=== PATIENT | female | born 1990 | race Caucasian/White ===

== ENCOUNTER 2016-09-21 11:58 | Emergency (ER) | payer MEDICAID, OTHER ==
[2016-09-21] MEDS ORDERED: Vancomycin(*) 1,000 MG in NS 0.9% 250 ML* 250 ML IVPB ONE (14:56)
[2016-09-21 15:43] LABS: Hematocrit 41 % (35-47); Hemoglobin 13.9 g/dl (12.0-16.0); Mean Corpuscular HGB Conc 34 g/dl (31-36); Mean Corpuscular Hemoglobin 30 pg (27-31); Mean Corpuscular Volume 88 fL (80-97); Mean Platelet Volume 7 um3 (7.4-10.4); Red Blood Count 4.69 10^6/ul (4.0-5.4); Red Cell Distribution Width 13 % (10.5-15); White Blood Count 9.4 10^3/ul (3.5-10.8)
[2016-09-21] MEDS ORDERED: LORazepam INJ* 2 MG/ML 1 ML VIAL IV PUSH ONE ×2 (15:46→16:42)
--- NOTE | 2016-09-21 15:46 | ED ---
Throat Pain/Nasal Congestion - HPI Summary HPI Summary: Patient arrives to ED with CC of bilateral periorbital swelling and erythema x 2 days. She states there have been open lesions on the forehead which had recently gotten worse and more "infected." She was seen at the [facility] - [place], [place] and prescribed Bactrim. At that time she was not experiencing periorbital edema. Today, worsening edema brings her to ED. Visual acuity intact. Area exquisitely tender on palpation. Denies visual disturbances, pain with EOM, discharge from the area or CARTER. Denies nasal discharge or recent illness. She is currently on suboxone and is unable to take opioids. 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 Erythematous lesions over forehead and face cover multiple area without discharge. Denies other illness, pain or symptoms at this time. 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 - History of Current Complaint Hx Obtained From: Patient Onset/Duration: Gradual Onset Severity: Worse Since: - this am Associated Signs And Symptoms: Positive: Negative - Epiglottits Risk Factors Epiglottis Risk Factors: Negative <Yuridia Mauricio - Last Filed: 09/21/16 16:22> <Monique White - Last Filed: 09/21/16 18:19> - History of Current Complaint Chief Complaint: EDGeneral Time Seen by Provider: 09/21/16 13:44 - Allergies/Home Medications Allergies/Adverse Reactions: Allergies Allergy/AdvReac Type Severity Reaction Status Date / Time No Known Allergies Allergy Verified 09/21/16 13:42 PMH/Surg Hx/FS Hx/Imm Hx Previously Healthy: Yes - mixed connective tissue disorder, previous drug history on suboxone Endocrine/Hematology History: Denies: Hx Diabetes, Hx Thyroid Disease Cardiovascular History: Denies: Hx Hypertension Respiratory History: Reports: Hx Asthma Denies: Hx Chronic Obstructive Pulmonary Disease (COPD) GI History: Denies: Hx Ulcer Sensory History: Denies: Hx Contacts or Glasses Opthamlomology History: Denies: Hx Contacts or Glasses Infectious Disease History: No Infectious Disease History: Reports: Hx Hepatitis - C, Hx of Known/Suspected MRSA Denies: Hx Clostridium Difficile, Hx Human Immunodeficiency Virus (HIV), Hx Shingles, Hx Tuberculosis, Hx Known/Suspected VRE, Hx Known/Suspected VRSA, History Other Infectious Disease, Traveled Outside the [place] in Last 30 Days - Family History Known Family History: Positive: Unknown, Other - denies any FMH disorders of blood - Social History Occupation: Unemployed Lives: Alone Alcohol Use: None Alcohol Amount: denies Hx Substance Use: No Substance Use Type: Reports: Heroin Substance Use Comment - Amount & Last Used: November 2015 - in a half way house 127 days clean Hx Tobacco Use: No Smoking Status (MU): Light Every Day Tobacco Smoker Type: Cigarettes Do You Chew or Dip Tobacco: No Amount Used/How Often: 5 cigarettes daily Have You Chewed or Dipped Tobacco in the LAST YEAR: No Length of Time of Smoking/Using Tobacco: 13 yrs Have You Smoked in the Last Year: Yes Household Exposure: No <Yuridia Mauricio - Last Filed: 09/21/16 16:22> Review of Systems Constitutional: Negative Positive: Erythema, Other - painful to palpation periorbitally ENT: Negative Cardiovascular: Negative Respiratory: Negative Genitourinary: Negative Positive: no symptoms reported, see HPI Musculoskeletal: Negative Skin: Negative Neurological: Negative Positive: Anxious All Other Systems Reviewed And Are Negative: Yes <Yuridia Mauricio - Last Filed: 09/21/16 16:22> Physical Exam Triage Information Reviewed: Yes Vital Signs On Initial Exam: Initial Vitals Temp Pulse Resp BP Pulse Ox 99.2 F 88 15 140/83 100 09/21/16 12:03 09/21/16 12:03 09/21/16 12:03 09/21/16 12:03 09/21/16 12:03 Vital Signs Reviewed: Yes Appearance: Positive: Ill-Appearing, Pain Distress Skin: Positive: Warm, Skin Color Reflects Adequate Perfusion, Erythema @ - periorbitally Eyes: Positive: EOMI, DAILY, Conjunctiva Inflammed - slightly with no discharge, Other: - warm erythematous edematous periorbital bilateral tenderness ENT: Positive: Normal ENT inspection, Pharynx normal, TMs normal Neck: Positive: Supple, Nontender Respiratory/Lung Sounds: Positive: Clear to Auscultation Cardiovascular: Positive: Normal Musculoskeletal: Positive: Normal, Strength/ROM Intact Neurological: Positive: Normal, Sensory/Motor Intact, Alert, Oriented to Person Place, Time, CN Intact II-III, Speech Normal Psychiatric: Positive: Normal AVPU Assessment: Alert - [place] Coma Scale Coma Scale Total: 15 <Luly,Yuridia Gonzalez - Last Filed: 09/21/16 16:22> Vital Signs On Initial Exam: Initial Vitals Temp Pulse Resp BP Pulse Ox 99.2 F 88 15 140/83 100 09/21/16 12:03 09/21/16 12:03 09/21/16 12:03 09/21/16 12:03 09/21/16 12:03 <Monique White - Last Filed: 09/21/16 18:19> Diagnostics - Vital Signs Vital Signs Temp Pulse Resp BP Pulse Ox 09/21/16 12:59 99.1 F 103 14 130/78 99 09/21/16 12:03 99.2 F 88 15 140/83 100 - Laboratory Result Diagrams: 09/21/16 15:31 09/21/16 15:31 Lab Statement: Any lab studies that have been ordered have been reviewed, and results considered in the medical decision making process. <Yuridia Mauricio - Last Filed: 09/21/16 16:22> - Vital Signs Vital Signs Temp Pulse Resp BP Pulse Ox 09/21/16 16:47 16 09/21/16 16:10 89 100 09/21/16 16:00 91 127/64 98 09/21/16 15:49 17 09/21/16 15:43 85 95 09/21/16 15:41 124/70 09/21/16 12:59 99.1 F 103 14 130/78 99 09/21/16 12:03 99.2 F 88 15 140/83 100 - Laboratory Lab Results: Lab Results 09/21/16 09/21/16 09/21/16 Range/Units 15:31 15:31 15:31 WBC 9.4 (3.5-10.8) 10^3/ul RBC 4.69 (4.0-5.4) 10^6/ul Hgb 13.9 (12.0-16.0) g/dl Hct 41 (35-47) % MCV 88 (80-97) fL MCH 30 (27-31) pg MCHC 34 (31-36) g/dl RDW 13 (10.5-15) % Plt Count 244 (150-450) 10^3/ul MPV 7 L (7.4-10.4) um3 Neut % (Auto) 54.0 (38-83) % Lymph % (Auto) 32.5 (25-47) % Sandoval % (Auto) 10.1 H (1-9) % Eos % (Auto) 2.9 (0-6) % Baso % (Auto) 0.5 (0-2) % Absolute Neuts (auto) 5.1 (1.5-7.7) 10^3/ul Absolute Lymphs (auto) 3.1 (1.0-4.8) 10^3/ul Absolute Monos (auto) 1.0 H (0-0.8) 10^3/ul Absolute Eos (auto) 0.3 (0-0.6) 10^3/ul Absolute Basos (auto) 0 (0-0.2) 10^3/ul Absolute Nucleated RBC 0.01 10^3/ul Nucleated RBC % 0.1 Sodium 134 (133-145) mmol/L Potassium 3.9 (3.5-5.0) mmol/L Chloride 101 (101-111) mmol/L Carbon Dioxide 27 (22-32) mmol/L Anion Gap 6 (2-11) mmol/L BUN 10 (6-24) mg/dL Creatinine 0.70 (0.51-0.95) mg/dL Est GFR ( Amer) 129.1 (>60) Est GFR (Non-Af Amer) 100.4 (>60) BUN/Creatinine Ratio 14.3 (8-20) Glucose 92 (70-100) mg/dL Lactic Acid 0.8 (0.5-2.0) mmol/L Calcium 9.6 (8.6-10.3) mg/dL Total Bilirubin 0.40 (0.2-1.0) mg/dL AST 43 H (13-39) U/L ALT 80 H (7-52) U/L Alkaline Phosphatase 64 (34-104) U/L C-Reactive Protein 23.46 H (< 5.00) mg/L Total Protein 7.7 (6.4-8.9) g/dL Albumin 4.2 (3.2-5.2) g/dL Globulin 3.5 (2-4) g/dL Albumin/Globulin Ratio 1.2 (1-3) Result Diagrams: 09/21/16 15:31 09/21/16 15:31 Lab Statement: Any lab studies that have been ordered have been reviewed, and results considered in the medical decision making process. - CT orbit CT Interpretation: Positive (See Comments) - IMPRESSION: Superficial soft tissue swelling as described above without CT evidence of post septal orbital cellulitis. CT Interpretation Completed By: Radiologist <Monique White - Last Filed: 09/21/16 18:19> EENT Course/Dx - Course Course Of Treatment: Patient sent to CT for orbit. Vanco started to cover most likely organsims - STAPH. WBC normal. Blood cultures drawn. Will await cultures to manage antibiotics. Patient given ativan for anxiety. - Differential Diagnoses Differential Diagnoses: Cellulitis, Conjunctivitis, Periorbital/Orbital Cellulitis <Yuridia Mauricio - Last Filed: 09/21/16 16:22> - Course Course Of Treatment: Patient requesting toradol for pain. explained lab results. CT: no evidence of post septal cellulitis. patient says feels harder area near eye but explained that no area of loculation noted on CT so nothing to drain. patient currently on bactrim started three days ago. will add augmetin to treat preseptal cellulitis. warned patient that if develops pain with eye movement to return to ED immediately. told to follow up with primary as soon as possible and to establish care with senior technical project manager for care of mixed connective tissue disorder. patient understands and agrees with plan <Monique White - Last Filed: 09/21/16 18:19> - Diagnoses Provider Diagnoses: Periorbital cellulitis Discharge <Yuridia Mauricio - Last Filed: 09/21/16 16:22> <Monique White - Last Filed: 09/21/16 18:19> - Discharge Plan Condition: Stable Disposition: HOME Prescriptions: Amoxicillin/Clavulanate TAB* [Augmentin TAB 875*] 875 mg PO BID #19 tab Patient Education Materials: Periorbital Cellulitis in Adults (ED) Referrals: Marv Marcano MD [Primary Care Provider] - Additional Instructions: Follow up with primary care physician within 5 day Continue Bactrim as prescribed and add Augmentin twice a day for [address] warm compresses on area Return to ED if develop pain with eye movement or any new or worsening symptoms
[2016-09-21] MEDS ORDERED: Ibuprofen TAB* 600 MG PO ONE (15:52)
[2016-09-21 16:05] LABS: Albumin 4.2 g/dL (3.2-5.2); BUN/Creatinine Ratio 14.3 (8-20); C Reactive Protein 23.46 mg/L (< 5.00); Calcium 9.6 mg/dL (8.6-10.3); EGFR African American 129.1 (>60); EGFR Non-African American 100.4 (>60); Globulin 3.5 g/dL (2-4); Potassium 3.9 mmol/L (3.5-5.0); Total Bilirubin 0.4 mg/dL (0.2-1.0); Total Protein 7.7 g/dL (6.4-8.9)
[2016-09-21] MEDS: Iohexol 300* (CONTRAST) 10 ML SDV IV ONE ×2 (16:10→16:11)
[2016-09-21] MEDS ORDERED: LORazepam INJ* 2 MG/ML 1 ML VIAL ONE (16:43)
[2016-09-21 17:01] VITALS: BP 127/64
[2016-09-21] MEDS ORDERED: Ketorolac INJ* 30 MG/ML 1 ML VIAL IV PUSH ONE (17:28)
--- NOTE | 2016-09-21 18:00 | RAD ---
INDICATION: Bilateral eye swelling that started on the left and has spread to the right COMPARISON: None TECHNIQUE: Contiguous axial sections of the orbits were obtained after the intravenous injection of 75 mL Omnipaque 300. Images were reconstructed in the coronal and sagittal planes. FINDINGS: Overlying the left maxilla there is induration and asymmetric thickening of the subcutaneous tissue. Subcutaneous induration extends to the left greater than right periorbital area and overlies the midline frontal bone, overall worse overlying the left than the right. The extraocular muscles appear normal in shape and size. The globes are symmetric and in normal position. The optic nerves are symmetric in size. No fracture is seen. The visualized portion of the paranasal sinuses and mastoid air cells appear clear. IMPRESSION: Superficial soft tissue swelling as described above without CT evidence of post septal orbital cellulitis.
[2016-09-21] MEDS ORDERED: Amoxicillin/Clavulanate TAB* 875 MG PO ONE (18:09)
== END 2016-09-21 18:23 | disposition home or self-care (01) ==
LOC: ED 11:58
DX: L03.213 Periorbital cellulitis (principal); F41.9 Anxiety disorder, unspecified
CPT/HCPCS: 36415; 70481; 80053; 83605; 85025; 86140; 96365; 99283; A9270-GY; J1885; J2060; J3370; Q9967

== ENCOUNTER 2017-04-28 02:05 | Emergency (ER) | payer OTHER ==
[2017-04-28] MEDS ORDERED: Tetan/Diph/Pertus SYR(Tdap)* 0.5 ML SYR(BOOSTRIX) use SYR IM ONE (04:06)
[2017-04-28] MEDS ORDERED: Lidocaine 1%* 5 ML VIAL INJ ONE (05:45)
[2017-04-28] MEDS ORDERED: Amoxicillin/Clavulanate TAB* 875 MG PO ONE (06:34)
[2017-04-28 07:01] VITALS: BP 99/63
--- NOTE | 2017-04-28 08:30 | RAD ---
INDICATION: Laceration to anterior fifth metacarpal phalangeal joint COMPARISON: None. TECHNIQUE: 4 views of the right hand were obtained. FINDINGS: The adequately corticated bones are in normal alignment. No significant focal osseous abnormality or fracture is seen. Joint spaces appear maintained. No subcutaneous foreign body is identified. IMPRESSION: Normal right hand radiograph. If the patient's symptoms persist, follow-up imaging is recommended.
--- NOTE | 2017-05-09 05:32 | ED ---
Demarco Durbin Rebecca, scribed for Cesar De Oliveira MD on 04/28/17 at 0552 . Laceration/Wound HPI - HPI Summary HPI Summary: Pt is a 27 y/o F who presents to ED c/o laceration to the R hand. Pt reports that at approximately 0115 she cut her hand on a pane of glass. Pain is currently moderate. ranked 4/10. Sx aggravated and alleviated by nothing. Additionally c/o wheezing and productive cough for about 1 week, producing green sputum. Initially, Mucinex improved symptoms but it is no long effective. Denies fever. Confirms she has used albuterol inhalers previously. - History of Current Complaint Stated Complaint: RIGHT HAND LAC Time Seen by Provider: 04/28/17 05:39 Hx Obtained From: Patient Hx Last Menstrual Period: last week Mechanism of Injury: Sharp/Blunt Trauma - Glass Onset/Duration: Still Present Aggravating: Nothing Alleviating: Nothing Current Severity: Moderate Pain Intensity: 4 Pain Scale Used: 0-10 Numeric - Allergy/Home Medications Allergies/Adverse Reactions: Allergies Allergy/AdvReac Type Severity Reaction Status Date / Time No Known Allergies Allergy Verified 04/28/17 02:15 PMH/Surg Hx/FS Hx/Imm Hx Endocrine/Hematology History: Denies: Hx Diabetes, Hx Thyroid Disease Cardiovascular History: Denies: Hx Hypertension Respiratory History: Reports: Hx Asthma Denies: Hx Chronic Obstructive Pulmonary Disease (COPD) GI History: Denies: Hx Ulcer Sensory History: Denies: Hx Contacts or Glasses Opthamlomology History: Denies: Hx Contacts or Glasses Infectious Disease History: No Infectious Disease History: Reports: Hx Hepatitis - C, Hx of Known/Suspected MRSA Denies: Hx Clostridium Difficile, Hx Human Immunodeficiency Virus (HIV), Hx Shingles, Hx Tuberculosis, Hx Known/Suspected VRE, Hx Known/Suspected VRSA, History Other Infectious Disease, Traveled Outside the [place] in Last 30 Days - Family History Known Family History: Positive: Other - denies any FMH disorders of blood - Social History Alcohol Use: None Alcohol Amount: denies Hx Substance Use: No Substance Use Type: Reports: None Substance Use Comment - Amount & Last Used: November 2015 - in a half way house 127 days clean Hx Tobacco Use: No Smoking Status (MU): Light Every Day Tobacco Smoker Type: Cigarettes Amount Used/How Often: 5 cigarettes daily Length of Time of Smoking/Using Tobacco: 13 yrs Have You Smoked in the Last Year: Yes Review of Systems Negative: Fever Positive: Cough - productive, Other - Wheezing Positive: Other - Laceration to the R hand All Other Systems Reviewed And Are Negative: Yes Physical Exam - Summary Physical Exam Summary: General: well-appearing, no pain distress Skin: warm, color reflects adequate perfusion, dry Head: normal Eyes: EOMI, DAILY ENT: normal Neck: supple, nontender Respiratory: bilateral wheezes Cardiovascular: RRR Abdomen: soft, nontender Bowel: present Musculoskeletal: strength/ROM intact, has a flap laceration on the ulnar aspect of the right hand at the base of her 5th finger, finger was strong with FROM and the laceration had no tendon involvement Neurological: normal, sensory/motor intact, A&O x3 Psychological: affect/mood appropriate Triage Information Reviewed: Yes Vital Signs On Initial Exam: Initial Vitals Temp Pulse Resp BP Pulse Ox 98.0 F 79 15 127/79 97 04/28/17 02:13 04/28/17 02:13 04/28/17 02:13 04/28/17 02:13 04/28/17 02:13 Vital Signs Reviewed: Yes - [place] Coma Scale Coma Scale Total: 15 Procedures - Laceration/Wound Repair 1 Location: Other Description: Irregular - Flap Anesthesia: 1.0%, [place] Laceration/Wound Explored: clean Closure: Single Layer Suture Type: Prolene - 5.0 prolene Number of Sutures: 8 Diagnostics - Vital Signs Vital Signs Temp Pulse Resp BP Pulse Ox 04/28/17 05:00 76 110/64 97 04/28/17 04:30 25 106/65 96 04/28/17 04:26 72 24 95 04/28/17 04:23 113/68 04/28/17 03:28 99.1 F 76 18 109/61 98 04/28/17 02:16 98.0 F 79 15 127/79 97 04/28/17 02:13 98.0 F 79 15 127/79 97 - Laboratory Lab Results: Lab Results 04/28/17 Range/Units 05:00 HIV 1&2 Antibody Nonreactive (Nonreactive) Lab Statement: Any lab studies that have been ordered have been reviewed, and results considered in the medical decision making process. - Radiology Hand XR Xray Interpretation: No Acute Changes Radiology Interpretation Completed By: ED Physician Laceration Repair Course/Dx - Course Assessment/Plan: Pt is a 27 y/o F who presents to ED c/o laceration to the R hand. Pt reports that at approximately 0115 she cut her hand on a pane of glass. Pain is currently moderate. ranked 4/10. Sx aggravated and alleviated by nothing. Additionally c/o wheezing and productive cough for about 1 week, producing green sputum. Initially, Mucinex improved symptoms but it is no long effective. Denies fever. Confirms she has used albuterol inhalers previously. IN the ED course, pt received Xylocaine and Boostrix. Laceration repair was done. She will be D/C to home with a follow up for suture removal. She understands and agrees. Elevated BP noted and advised to f/u with PCP. - Clinical Impression Provider Diagnoses: Laceration of right hand Discharge - Discharge Plan Condition: Stable Disposition: HOME Prescriptions: Albuterol HFA INHALER* [Ventolin HFA Inhaler*] 2 puff INH Q4H PRN #1 mdi PRN Reason: Dyspnea Amoxicillin/Clavulanate TAB* [Augmentin TAB 875*] 875 mg PO BID #19 tab Patient Education Materials: Care For Your Stitches (ED), Laceration (ED), Acute Bronchitis (ED), Bronchospasm (ED) Referrals: Claudia Pablo MD [Primary Care Provider] - Additional Instructions: FOLLOW UP WITH YOUR DOCTOR. SUTURES OUT IN 8-10 DAYS. RETURN TO THE EMERGENCY DEPARTMENT FOR ANY WORSENING OF YOUR CONDITION; SIGNS OF INFECTION OR QUESTIONS OR CONCERNS. The documentation as recorded by the Demarco banks Rebecca accurately reflects the service I personally performed and the decisions made by me, Cesar De Oliveira MD.
== END 2017-04-28 07:04 | disposition home or self-care (01) ==
LOC: ED 02:05
DX: S61.411A Laceration without foreign body of right hand, initial encounter (principal); W25.XXXA Contact with sharp glass, initial encounter; Y93.9 Activity, unspecified; Y92.9 Unspecified place or not applicable; F17.210 Nicotine dependence, cigarettes, uncomplicated
CPT/HCPCS: 12001; 36415; 86703; 90471; 90715; 96374; 99283; A9270-GY

== ENCOUNTER 2018-01-02 05:33 | Emergency (ER) | payer OTHER ==
[2018-01-02 05:40] VITALS: BP 123/77
--- NOTE | 2018-01-02 06:05 | ED ---
Substance Abuse/Use - HPI Summary HPI Summary: Patient is a 27-year-old female presenting to the ED accompanied by officers for a legal blood draw. Offers state that approximately 1:30 in the morning as the officers were conducting a routine roadblock and checking each car, they found her to appear impaired. Roadside testing was completed. Breathalyzer was 0.00. She was then taken here for a legal blood draw to assess for drug use for a DWAI. Drugs found in the vehicle. Officers states she was exhibiting symptoms of drug use and appearing to be under the influence. - History Of Current Complaint Chief Complaint: EDGeneral Stated Complaint: LEGAL BLOOD DRAW Time Seen by Provider: 01/02/18 05:41 Hx Obtained From: Patient Hx Last Menstrual Period: last week ?: No Onset/Duration of Drug/ETOH Abuse: Minutes Ingestion History: Type/Name Of Drug - unknow Severity Initially: Moderate Severity Currently: Moderate Character: Anxious Aggravating Factor(s): Nothing Alleviating Factor(s): Nothing Associated Signs And Symptoms: Intentional Ingestion Related Hx: Possible Multi Drug Ingestion - Risk Factor(s) Completed Suicide Risk Factors: Negative - Allergies/Home Medications Allergies/Adverse Reactions: Allergies Allergy/AdvReac Type Severity Reaction Status Date / Time No Known Allergies Allergy Verified 01/02/18 05:40 PMH/Surg Hx/FS Hx/Imm Hx Previously Healthy: Yes Endocrine/Hematology History: Denies: Hx Diabetes, Hx Thyroid Disease Cardiovascular History: Denies: Hx Hypertension Respiratory History: Reports: Hx Asthma Denies: Hx Chronic Obstructive Pulmonary Disease (COPD) GI History: Denies: Hx Ulcer Sensory History: Denies: Hx Contacts or Glasses Opthamlomology History: Denies: Hx Contacts or Glasses - Immunization History Date of Tetanus Vaccine: unk Date of Influenza Vaccine: unk Hx Pertussis Vaccination: No Immunizations Up to Date: Unable to Obtain/Confirm Infectious Disease History: No Infectious Disease History: Reports: Hx Hepatitis - C, Hx of Known/Suspected MRSA Denies: Hx Clostridium Difficile, Hx Human Immunodeficiency Virus (HIV), Hx Shingles, Hx Tuberculosis, Hx Known/Suspected VRE, Hx Known/Suspected VRSA, History Other Infectious Disease, Traveled Outside the [place] in Last 30 Days - Family History Known Family History: Positive: Unknown, Other - denies any FMH disorders of blood - Social History Occupation: Unemployed Lives: Alone Alcohol Use: Rare Alcohol Amount: denies Hx Substance Use: No Substance Use Type: Reports: None Substance Use Comment - Amount & Last Used: 10 months clean Hx Tobacco Use: No Smoking Status (MU): Light Every Day Tobacco Smoker Type: Cigarettes Amount Used/How Often: 5 cigarettes daily Length of Time of Smoking/Using Tobacco: 13 yrs Have You Smoked in the Last Year: Yes Review of Systems Constitutional: Negative Positive: Fatigue. Negative: Fever, Chills Negative: Palpitations, Chest Pain Negative: Shortness Of Breath, Cough Genitourinary: Negative Positive: no symptoms reported, see HPI Musculoskeletal: Negative Neurological: Negative Positive: Anxious All Other Systems Reviewed And Are Negative: Yes Physical Exam Triage Information Reviewed: Yes Vital Signs On Initial Exam: Initial Vitals Temp Pulse Resp BP Pulse Ox 99.0 F 75 16 123/77 95 01/02/18 05:35 01/02/18 05:35 01/02/18 05:35 01/02/18 05:35 01/02/18 05:35 Vital Signs Reviewed: Yes Appearance: Positive: No Pain Distress Skin: Positive: Skin Color Reflects Adequate Perfusion Eyes: Positive: EOMI, Conjunctiva Inflammed Neck: Positive: Supple, Nontender, No Lymphadenopathy Respiratory/Lung Sounds: Positive: Breath Sounds Present Cardiovascular: Positive: RRR, Pulses are Symmetrical in both Upper and Lower Extremities Musculoskeletal: Positive: Strength/ROM Intact Neurological: Positive: Slurred Speech Psychiatric: Positive: Patient Uncooperative for Exam Diagnostics - Vital Signs Vital Signs Temp Pulse Resp BP Pulse Ox 01/02/18 05:35 99.0 F 75 16 123/77 95 - Laboratory Lab Statement: Any lab studies that have been ordered have been reviewed, and results considered in the medical decision making process. Course/Dx - Course Course Of Treatment: Legal blood draw conducted by officers with ROSITA Perdomo at bedside. Patient appears to be under the influence she appears to be very fatigued and has slurred speech. She denies any pain or symptoms. She states she has anxiety at this time. She will be discharged back to the custody of officers. - Diagnoses Provider Diagnoses: Intoxication Discharge - Sign-Out/Discharge Documenting (check all that apply): Discharge/Admit/Transfer - Discharge Plan Condition: Stable Disposition: HOME Referrals: Clauida Pablo MD [Primary Care Provider] - - Billing Disposition and Condition Condition: STABLE Disposition: HOME
== END 2018-01-02 06:05 | disposition home or self-care (01) ==
LOC: ED 05:33
DX: Z04.8 Encounter for examination and observation for other specified reasons (principal); F17.210 Nicotine dependence, cigarettes, uncomplicated; R53.83 Other fatigue
CPT/HCPCS: 99282

== ENCOUNTER 2018-11-17 04:24 | Inpatient (IN) | payer OTHER ==
[2018-11-17] MEDS ORDERED: Lactated Ringers 1000 ML Bag* 1,000 ML IV ONE ×2 (06:40→14:11)
[2018-11-17] MEDS ORDERED: Buffered Lidocaine 1% SYRIN* 1 ML/SYRINGE INTRADERM ONE (06:40)
[2018-11-17] MEDS ORDERED: Lactated Ringers 1000 ML Bag* 1,000 ML IV SCH ×3 (07:00→22:00)
--- NOTE | 2018-11-17 07:03 | HP ---
General Information - General Information Maternal Age: 28 Grav: 1 Estimated Due Date: 11/28/18 Determined By: Early Ultrasound Maternal Blood Type and Rh: O Positive - Results this Serology/RPR Result: Non-Reactive Rubella Result: Non-Immune HBsAg Result: Negative HIV Result: Negative GBS Culture Result: Negative Past Medical History Delivery History: See Records Delivery History Comment: No previous pregnancies Pertinent Past Medical History: See Records Past Medical History Comment: Asthma Colitis Hep C Mixed Connective Tissue dz Hx substance abuse, on Subutex Pertinent Past Surgical History: None Pertinent Family History: Non-Contributory Family History Comment: Lupus Bladder Ca Crohn's dz Heart dz - Antepartal Records Antepartal Records: Reviewed, Complicated by: - On Subutex, weaned from 16 to 2 mg during ; smoker; Hep C, undetectable. Review of Systems Constitutional: Uncomfortable CV Complaint: No Respiratory: Shortness of Breath: No Gastrointestinal: Normal Bowel Movement, Nausea Genitourinary: Leaking Fluid, Spotting Musculoskeletal: Contractions Neurological: No Headache, No Visual Changes Movement: Normal Exam Allergies/Adverse Reactions: Allergies No Known Allergies Allergy (Verified 11/17/18 04:48) BP 143/90, repeat 127/93 T 97.9 HR 79 RR 18 O2 99 - Measurements Height: 5 ft 1 in Weight: 201 lb Weight in lbs: [id number] Body Mass Index (BMI): 38.0 Pre- Weight: 175 lb Weight Gained This : 26 lbs and 0 ozs - Exam Breast: Breast Exam Deferred CVA: No CVA Tenderness Extremities: No Edema Heart: Normal Rhythm/Heart Sounds HEENT: No Significant Findings Lungs: Clear Bilaterally Rectal: Rectal Exam Deferred Reflexes: DTR 2+, - - no clonus Thyroid: - - WNL @ entry to care - Abdominal Exam Abdomen Exam: Non-Tender, Fundal Height Consistent with Dates Targeted Exam Findings See L&D Outpatient Visit Provider Note for Findings: N/A Cervical Exam: 1cm - 1.5cm Effacement: 80% Station: -1 Presenting Part: Vertex Membrane Status: SROM Amniotic Fluid Evaluation: Meconium Bleeding/Discharge: Bloody Show EFM Findings - External Monitor Findings Baseline Heart Rate: 145 External Monitor Findings: Accelerations Present, No Pattern of Variable or Late Decelerations, Variability Moderate Contractions: Regular, Moderate, 45-90 Seconds Contraction Frequency: Q2-4 min Assessment/Plan - Assessment IUP @ 38+2 weeks gestation. Spontaneous rupture of membranes with meconium in fluid. - Plan Plan: Admit - Anticipate Vaginal Delivery Plan Comment: Admit to L&D. Patient may desire pain medication but undecided. Continue to monitor. Anticipate SVB. - Date/Time of Admission Date of Admission: 11/17/18 Time of Admission: 06:32
[2018-11-17] MEDS ORDERED: Mouth Piece, Nicotine* 1 EACH CARTRIDGE ONE (07:38)
[2018-11-17] MEDS: Nicotine Inhaler* 10 MG AMP INH PRN (07:42)
--- NOTE | 2018-11-17 07:54 | PN ---
Progress Note - Progress Note Date of Service: 11/17/18 Note: Reviewed PEC labs with patient due to BPs, she verbalized understanding. Patient asking if she can go home, states "I'm not going to stay here if nothing is happening". Encouraged to stay due to ROM for continued monitoring. Encouraged position changes, can be up and out of bed, into tub. Patient to utilize nicotine inhaler. Plan to defer VE to oncoming LM for continued management.
[2018-11-17 08:21] LABS: ABS Basophils 0 10^3/ul (0-0.2); ABS Eosinophils 0.1 10^3/ul (0-0.6); ABS Lymphocytes 2.5 10^3/ul (1.0-4.8); ABS Neutrophils 11.8 10^3/ul (1.5-7.7); ABS Nucleated RBC 0 10^3/ul; Eosinophil % 0.3 %; Hematocrit 40 % (33-41); Lymphocyte % 16.2 %; Mean Corpuscular HGB Conc 35 g/dL (31-36); Mean Corpuscular Hemoglobin 32 pg (27-31); Mean Corpuscular Volume 90 fL (80-97); Mean Platelet Volume 7.4 fL (7.4-10.4); Nucleated Red Blood Cells % 0; Platelet Count 240 10^3/uL (150-450); Red Blood Count 4.41 10^6 /uL (3.70-4.87); Red Cell Distribution Width 13 % (10.5-15); White Blood Count 15.3 10^3/uL (3.5-10.8)
[2018-11-17 08:28] LABS: Urine Appearance Clear; Urine Bacteria Absent (Absent); Urine Bilirubin Negative (Negative); Urine Blood 2+ (Negative); Urine Color Straw; Urine Glucose Negative (Negative); Urine Ketones Negative (Negative); Urine Nitrite Negative (Negative); Urine Protein Negative (Negative); Urine Red Blood Cell Trace(0-2/hpf) (Absent); Urine Specific Gravity 1.006 (1.010-1.030); Urine Squamous Epithelial Cell Present (Absent); Urine Urobilinogen Negative (Negative); Urine White Blood Cell Trace(0-5/hpf) (Absent)
[2018-11-17 08:56] LABS: Albumin 3.3 g/dL (3.2-5.2); Albumin/Globulin Ratio 1.2 (1-3); BUN/Creatinine Ratio 23.9 (8-20); Calcium 9.3 mg/dL (8.6-10.3); EGFR African American 194.3 (>60); EGFR Non-African American 160.6 (>60); Globulin 2.7 g/dL (2-4); Potassium 4.1 mmol/L (3.5-5.0); Total Bilirubin 0.3 mg/dL (0.2-1.0); Uric Acid 4.5 mg/dL (2.3-6.6)
--- NOTE | 2018-11-17 10:30 | PN ---
Progress Note - Progress Note Date of Service: 11/17/18 Note: S: Pt increasingly uncomfortable. Very abrasive with staff. Feels that she came to the hospital too soon and should have stayed home longer. Upon entering the room pt informed me she didn't feel like speaking but then complained that no one is telling her anything and she's already been here for 9 hours. O: BP 122/75 (all BP labs WNL, see appropriate forms in chart) HR 80bpm T 98.1 FHT 135bpm. Moderate variability. +Accels. Isolated variable decel, recovered UCs q 3-5 min VE: 3cm/80%/vtx -1, meconium stained fluid A: IUP at 38-3/7 in early active labor Cat II FHT - doubt metabolic acidemia Meconium stained fluid P: Lengthy teaching of labor progress. Reinforced that in presence of ruptured membranes with meconium we do recommend being in the hospital even in early labor. Reviewed normal BP labs. Pt verbalizes understanding of all, still appears grumpy but appreciates caution and monitoring of heart tracing in presence of meconium. Close monitoring of maternal/ status.
[2018-11-17] MEDS ORDERED: Ondansetron INJ* 2 MG/ML VIAL IV PRN (12:53)
--- NOTE | 2018-11-17 12:53 | PN ---
Progress Note - Progress Note Date of Service: 11/17/18 Note: S: Christophe is standing upright at bedside, leaning over bedside table with UCs, vocalizing not feeling as though she is getting a break. Reports vomiting a couple of times but thinks she is able to keep some water down. O: VS: B/P 122/75, P: 80, RR:20, T: 98.2 FHR: baseline 140, moderate variability, +accelerations, no decelerations UCs: q2-4 minutes by palpation, mild-moderate VE deferred at this time A: IUP at 38 3/7 weeks Category I FHR, no evidence of metabolic acidemia Early active labor P: Discussed possibility of initiating IV access with Christophe in order to ensure she is getting adequate fluids and enable PRN antiemetic medication if she desires it. Christophe agrees. Lengthy discussion regarding normal labor progress, when to assess cervical change, and labor preferences. She prefers to avoid epidural at this time but also voices feeling unsure if she can get through labor unmedicated. Reassess in 1-2 hours or sooner as needed Anticipate SVB
[2018-11-17] MEDS ORDERED: OBEPIDURAL* 250 ML EPIDURAL ONE (13:35)
--- NOTE | 2018-11-17 13:39 | PN ---
Progress Note - Progress Note Date of Service: 11/17/18 Note: S: Sitting in bed, weeping with UCs, states she "can't do this any longer" and requesting CEI for pain relief. Partner at bedside providing calm emotional support O: VS: B/P: 137/101, P: 89, RR: 19, T: 98.2 FHR: 135, moderate variability, +accelerations, no decelerations UCs: 3-6 min, mild-moderate VE: 3.5/90/-2, meconium fluid A: IUP at 38 3/7 weeks Category I FHR, no evidence of metabolic acidemia Early active labor P: Dr. Alex serrano for CEI Re-assess B/P prior to placement of epidural Consider pitocin augmentation once she is comfortable Anticipate SVB
[2018-11-17] MEDS ORDERED: Mouth Piece, Nicotine* 1 EACH CARTRIDGE INH ONE (14:00)
[2018-11-17] MEDS ORDERED: Phenylephrine 40 MCG/ML SYRINGE IV PUSH PRN ×2 (14:11)
[2018-11-17] MEDS ORDERED: Sodium Citrate/Citric Acid* 15 ML UDC PO PRN (14:11)
[2018-11-17] MEDS ORDERED: Famotidine TAB* 20 MG PO PRN (14:11)
[2018-11-17] MEDS ORDERED: OBEPIDURAL* 250 ML EPIDURAL SCH (15:00)
[2018-11-17] MEDS ORDERED: Oxytocin in LR* 20 UNITS/1,000 ML BAG IVPB ONE (15:47)
--- NOTE | 2018-11-17 15:52 | PN ---
Progress Note - Progress Note Date of Service: 11/17/18 Note: S: Rhae resting in a sitting position, watching television. Happy with decision to get epidural, able to laugh and cope now. O: B/P: 125/74, P: 71, RR:19, T: 97.6 FHR: 135, moderate variability, +accelerations, no decelerations UCs: q 3.5-7 minutes, moderate VE: 5/90/-1, meconium stained fluid A: IUP at 38 3/7 weeks Category I FHR Early Active labor P: Discussed Pitocin augmentation as UCs have slowed down. Reviewed benefits, risks, alternatives. She agrees to trial. Reassess in 2-3 hours or sooner as needed Anticipate SVB
[2018-11-17] MEDS ORDERED: Oxytocin in LR* 20 UNITS/1,000 ML BAG IVPB SCH ×2 (16:00→21:10)
--- NOTE | 2018-11-17 19:38 | PN ---
Progress Note - Progress Note Date of Service: 11/17/18 Note: S: Still feeling comfortable, states she cannot feel UCs. O: VS: B/P 134/86, P: 79, RR:17, T: 98.5 FHR: baseline 135, moderate variability, +accelerations, isolated deceleration at 1729, uniform in shape but not associated with UC. Moderate variability throughout deceleration; <2min duration. Recovered spontaneously with no intervention UCs: q2-5 minutes, moderate to palpation Pitocin at 9 mu/min VE: 9.5/100/0 A: IUP at 38 3/7 weeks Category II FHR, doubt metabolic acidemia Active labor P: Upright positioning to encourage complete dilation Will await urge to push Reassess in 1-2 hrs or sooner as needed Anticipate SVB
[2018-11-17] MEDS ORDERED: Dibucaine 1% 28.35 GM TUBE PR PRN (21:47)
[2018-11-17] MEDS ORDERED: Glycerin ADULT SUPP PR PRN (21:47)
[2018-11-17] MEDS ORDERED: Acetaminophen TAB* 325 MG PO PRN (21:47)
[2018-11-17] MEDS ORDERED: Witch Hazel PAD* JAR TOPICAL PRN (21:47)
[2018-11-17] MEDS ORDERED: Measles, Mumps,Rubella VACC* 0.5 ML/VIAL SUBCUT ONE (21:47)
--- NOTE | 2018-11-17 21:58 | PROCNOTE ---
[facility] OB: Delivery Note - Delivery A Date of : 11/17/18 Time of : 21:01 [place] Sex: Female Score 1 Minute: 9 Score 5 Minutes: 9 Gestational Age in Weeks and Days at Delivery: 38 Weeks and 3 Days Delivery Method: Spontaneous Vaginal Labor: Spontaneous Did Patient attempt ?: N/A, No Previous Amniotic Fluid: Meconium Estimated Blood Loss: 300 Anesthesia/Analgesia: CEI for Labor Anesthesia Comment: Dr. Johnson Delivered By: Shikha Nowak - Nursery Level of Nursery: Regular/Bedside - Perineum Perineal Injury: Perineal Laceration, 2nd Degree Perineal Repair: By Delivering Practioner - Events Delivery Events of Note: Pitocin During Labor - Additional Delivery Notes Additional Delivery Notes: 28 yo with spontaneous contractions and SROM to meconium fluid received pitocin augmentation and progressed to complete. Pushed 38 minutes. Effective pushes with slow controlled delivery of head OA to SCOTT. Shoulders followed easily with next push. to mother's chest, dried and stimulated. Spontaneous cry noted, Apgars 9 and 9. Intact de [place] placenta followed 9 minutes later. Pitocin at 150 cc, fundus firm with massage. Vagina and perineum inspected, second degree laceration noted, repaired in the usual fashion. LSF=639 ml. Infant weight pending, mother and infant skin to skin and both in stable condition at time of note.
[2018-11-17] MEDS: Ibuprofen TAB* 600 MG PO PRN (22:06)
[2018-11-17] MEDS ORDERED: Lidocaine 1% INJ* 10 MG/ML 30 ML SDV ONE (22:47)
[2018-11-18] MEDS: Ibuprofen TAB* 600 MG PO PRN ×4 (04:05→22:07)
[2018-11-18 07:43] LABS: ABS Basophils 0 10^3/ul (0-0.2); ABS Eosinophils 0 10^3/ul (0-0.6); ABS Lymphocytes 2.2 10^3/ul (1.0-4.8); ABS Monocytes 1.5 10^3/ul (0-0.8); ABS Neutrophils 15.2 10^3/ul (1.5-7.7); ABS Nucleated RBC 0 10^3/ul; Eosinophil % 0.1 %; Hematocrit 35 % (33-41); Hemoglobin 11.9 g/dL (12.0-16.0); Lymphocyte % 11.5 %; Mean Corpuscular HGB Conc 34 g/dL (31-36); Mean Corpuscular Hemoglobin 31 pg (27-31); Mean Corpuscular Volume 91 fL (80-97); Mean Platelet Volume 7.4 fL (7.4-10.4); Nucleated Red Blood Cells % 0; Platelet Count 213 10^3/uL (150-450); Red Blood Count 3.83 10^6 /uL (3.70-4.87); Red Cell Distribution Width 13 % (10.5-15); White Blood Count 18.9 10^3/uL (3.5-10.8)
[2018-11-18] MEDS: Buprenorphine TAB* 2 MG TAB.SL SL SCH ×2 (07:44→14:49)
[2018-11-18] MEDS: Docusate CAP* 100 MG PO SCH ×3 (07:45→22:07)
[2018-11-18] MEDS ORDERED: Simethicone TAB* 80 MG TAB.CHEW PO SCH (08:30)
[2018-11-18] MEDS ORDERED: Ferrous Gluconate TAB* 324 MG TAB PO SCH (09:00)
[2018-11-18] MEDS: Nicotine Inhaler* 10 MG AMP INH PRN (12:39)
[2018-11-19] MEDS: Ibuprofen TAB* 600 MG PO PRN ×2 (06:19→13:08)
[2018-11-19] MEDS ORDERED: Buprenorphine TAB* 2 MG TAB.SL SL SCH (07:30)
[2018-11-19] MEDS: Docusate CAP* 100 MG PO SCH ×2 (07:52→13:08)
[2018-11-19 07:54] VITALS: BP 115/55
== END 2018-11-19 13:18 | disposition home or self-care (01) | DRG 560 ==
LOC: MCHOBOUT 04:24 → MCHOB 06:32
PROVIDERS: ADMIT Midwife; ATTEND Midwife
PROC: 4A1HXCZ Monitoring of Products of Conception, Cardiac Rate, External Approach (ICD-10-PCS; principal; 2018-11-17)
PROC: 10E0XZZ Delivery of Products of Conception, External Approach (ICD-10-PCS; 2018-11-17)
PROC: 0KQM0ZZ Repair Perineum Muscle, Open Approach (ICD-10-PCS; 2018-11-17)
DX: O77.0 Labor and delivery complicated by meconium in amniotic fluid (principal); Z37.0 Single live birth; O99.214 Obesity complicating childbirth; O99.334 Smoking (tobacco) complicating childbirth; O70.1 Second degree perineal laceration during delivery; O76 Abnormality in fetal heart rate and rhythm complicating labor and delivery; Z3A.38 38 weeks gestation of pregnancy
CPT/HCPCS: 36415; 80053; 81003; 81015; 84550; 85025; 86850; 86900; 86901; 87086; 90707; A9270-GY